=== PATIENT | female | born 2000 | race African-American/Black ===

== ENCOUNTER 2022-03-29 22:27 | Emergency (ER) | payer BC, OTHER ==
[~2022-03-29] VITALS: Ht 167.6 cm; Wt 62.0 kg
[2022-03-29 22:45] VITALS: BP 122/94
== END 2022-03-30 08:00 | disposition left against medical advice (07) ==
LOC: ER 22:27
DX: Z53.21 Procedure and treatment not carried out due to patient leaving prior to being seen by health care provider (principal)